=== PATIENT | male | born 1940 ===

== ENCOUNTER → 2018-09-08 13:03 | Outpatient (CLI) | payer MEDICARE ==
[2018-09-08 13:48] LABS: INR 1.22 (0.85-1.17); PROTIME 14.9 SECONDS (11.6-15.0)
== END | disposition home or self-care (01) ==
LOC: D.LABREF 13:03
PROVIDERS: Internal Medicine Cardiovascular Disease
DX: Z51.81 Encounter for therapeutic drug level monitoring (principal); Z79.01 Long term (current) use of anticoagulants; I50.22 Chronic systolic (congestive) heart failure